=== PATIENT | male | born 1995 | race African-American/Black ===

== ENCOUNTER 2017-09-29 21:00 | Observation (INO) | payer OTHER ==
[~2017-09-29] VITALS: Ht 165.1 cm; Wt 56.4 kg
[2017-09-29 21:11] VITALS: BP 123/78; TEMP 98.6
[2017-09-29 21:37] LABS: PLATELET COUNT 258 K/uL (142-355)
[2017-09-29 21:47] LABS: POTASSIUM 3.4 mmol/L (3.6-5.2)
[2017-09-30] VITALS (13 sets, daily range): BP systolic 90–158; BP diastolic 42–96; TEMP 97.5–98.1; Ht 165.1 cm; Wt 56.4 kg
[2017-10-01 00:29] VITALS: BP 131/68; TEMP 98.1
[2017-10-01 04:00] VITALS: BP 128/64; TEMP 98.1
[2017-10-01 05:22] LABS: PLATELET COUNT 254 K/uL (142-355)
[2017-10-01 08:00] VITALS: BP 131/75; TEMP 98.6
[2017-10-01 12:00] VITALS: BP 132/74; TEMP 98.8
== END 2017-10-01 14:35 | disposition home or self-care (01) ==
LOC: ED 21:00 → MED/SURG 09-30 01:10
PROVIDERS: Pediatrics; ADMIT Family Medicine
PROC: 0DTJ4ZZ Resection of Appendix, Percutaneous Endoscopic Approach (ICD-10-PCS; principal; 2017-09-30)
DX: K35.89 Other acute appendicitis (principal); R01.1 Cardiac murmur, unspecified; I86.1 Scrotal varices; R07.89 Other chest pain; R06.02 Shortness of breath
CPT/HCPCS: 36415; 80053; 80307; 80320; 81000; 85027; 93005; 93306; 96365; 96366; 96367; 99220; 99283; G0378; J0132; J0295; J0330; J1100; J1170; J1650; J1885; J2001; J2175; J2250; J2405; J2704; J2710; J3010; J3490; J7120; Q9963

== ENCOUNTER 2019-05-02 23:17 | Emergency (ER) | payer OTHER ==
[~2019-05-02] VITALS: Ht 165.1 cm; Wt 54.0 kg
[2019-05-02 23:54] LABS: PLATELET COUNT 301 K/uL (142-355)
[2019-05-03 00:11] LABS: POTASSIUM 3.5 mmol/L (3.6-5.2)
[2019-05-03 00:36] LABS: PARTIAL THROMBOPLASTIN TIME 27.3 SECONDS (24.5-33.6)
[2019-05-03 01:26] VITALS: BP 118/79; TEMP 98.1
== END 2019-05-03 01:26 | disposition home or self-care (01) ==
LOC: ED 23:17
PROVIDERS: Hospitalist
DX: S02.401A Maxillary fracture, unspecified side, initial encounter for closed fracture (principal); S02.2XXA Fracture of nasal bones, initial encounter for closed fracture; W01.10XA Fall on same level from slipping, tripping and stumbling with subsequent striking against unspecified object, initial encounter
CPT/HCPCS: 36415; 80048; 80320; 85027; 85610; 85730; 90471; 96360; 96361; 96365; 96375; 99284; J0690; J1885; J2270; J2405